=== PATIENT | male | born 1955 | race Caucasian/White ===

== ENCOUNTER 2017-10-13 12:17 | Outpatient (CLI) | payer MEDICARE, OTHER ==
[2017-10-13 14:16] LABS: #Basophils 0.1 thou/uL (0.0-0.2); #Eosinphils 0.2 thou/uL (0.0-0.7); #Lymphocytes 1.7 thou/uL (1.20-3.40); #Monocytes 0.6 thou/uL (0.11-0.59); #Neutrophils 3.8 thou/uL (1.40-6.50); %Basophils 0.8 % (0.0-1.0); %Eosinophils 3.3 % (0.0-10.0); %Lymphocytes 26.9 % (21.0-51.0); %Monocytes 8.8 % (0.0-10.0); Hematocrit 53.2 % (42.0-52.0); Mean Platelet Volume 8.6 fL (7.4-10.4); Red Blood Cell (RBC) Count 5.34 mill/uL (4.70-6.10); White Blood Cell (WBC) Count 6.3 thou/uL (4.8-10.8)
--- NOTE | 2017-10-13 14:16 | RAD ---
CHEST PA AND LATERAL: History: 62-year-old male for pre-operative evaluation. FINDINGS: Heart size is within normal limits. The lungs are clear. IMPRESSION: No acute intrathoracic disease. POS: [facility]
[2017-10-13 14:19] LABS: Bilirubin Negative (Negative); Blood, Urine Negative (Negative); Glucose, Urine (Dipstick) Negative (Negative); Ketone, Urine Negative (Negative); Nitrite Negative (Negative); Protein, Urine (Dipstick) Negative (Neg-Trace); Urobilinogen 0.2 mg/dL (0.2-1.0)
[2017-10-13 14:23] LABS: PTT 27.6 SEC (22.9-36.1); Prothrombin Time 14.5 SEC (12.0-14.7)
[2017-10-13 14:24] LABS: Bacteria/HPF None Seen HPF (None Seen); Hyaline Casts/LPF 0-3 HYALINE CAST LPF (0-3 Hyaline); RBC/HPF 0-3 HPF (0-3); Squamous Epithelial None Seen HPF (0-3); WBC/HPF 0-3 HPF (0-3)
[2017-10-13 14:40] LABS: Anion Gap 9 mmol/L (10-20); BUN (Urea Nitrogen) 12 mg/dL (8.4-25.7); Calc. Creatinine Clearance 0 mL/min (70-130); Carbon Dioxide 28 mmol/L (23-31); Chloride 104 mmol/L (98-107); Estimated GFR-MDRD Greater than 90
--- NOTE | 2017-10-14 07:49 | EKG ---
Test Reason : Blood Pressure : / mmHG Vent. Rate : 093 BPM Atrial Rate : 086 BPM P-R Int : 000 ms QRS Dur : 070 ms QT Int : 330 ms P-R-T Axes : 000 -17 047 degrees QTc Int : 410 ms Atrial fibrillation Inferior infarct , age undetermined Abnormal ECG No previous ECGs available Confirmed by LORNE PRIETO ([id number]) on 10/14/2017 7:49:18 AM Referred By: ELOISA Confirmed By:LORNE PRIETO
== END 2017-10-13 12:18 | disposition home or self-care (01) ==
LOC: LABBT 12:17
PROVIDERS: ATTEND Orthopaedic Surgery
DX: Z01.818 Encounter for other preprocedural examination (principal); M17.12 Unilateral primary osteoarthritis, left knee
CPT/HCPCS: 71020; 80048; 81001; 85025; 85610; 85730; 86850; 86900; 86901; 87081; 93005; 93010

== ENCOUNTER 2017-10-13 12:30 | Inpatient (IN) | payer MEDICARE, OTHER ==
[2017-10-13 12:39] VITALS: BMI 35.9
[2017-10-20] MEDS ORDERED: Cyclobenzaprine 10 MG TAB PO PRN (06:52)
[2017-10-20] MEDS ORDERED: Ipratropium Bromide 0.06% Nasal Inhaler 15ml EA NARE PRN (06:52)
[2017-10-20] MEDS ORDERED: Zolpidem Tartrate 5 MG TAB PO PRN ×2 (06:54→08:15)
[2017-10-20] MEDS ORDERED: Fentanyl 100 MCG/2 ML VIAL SLOW IVP PRN ×2 (06:54)
[2017-10-20] MEDS ORDERED: diphenhydrAMINE 25 MG CAP PO PRN ×2 (06:54→08:15)
[2017-10-20] MEDS ORDERED: traMADol HCl 50 MG TAB PO PRN ×3 (06:54→08:15)
[2017-10-20] MEDS ORDERED: Ondansetron HCl/PF 4 MG/2 ML Vial IVP PRN ×3 (06:54→10:56)
[2017-10-20] MEDS ORDERED: Promethazine HCl 25 MG/ML VIAL IM PRN ×3 (06:54→10:56)
[2017-10-20] MEDS ORDERED: HYDROcodone/Acetaminophen 10/325 mg Tablet PO PRN ×2 (06:54)
[2017-10-20] MEDS ORDERED: Acetaminophen 325 MG TAB PO PRN (06:54)
[2017-10-20] MEDS ORDERED: Tranexamic Acid 1,000 MG in Sodium Chloride 0.9% 100 ML IVPB SCH (07:00)
[2017-10-20] MEDS ORDERED: Tranexamic Acid 1,000 MG/100 ML BAG ONE ×2 (07:08→11:43)
[2017-10-20] MEDS ORDERED: Vancomycin HCl 1.5 GM in Sodium Chloride 0.9% 250 ML 300 ML IVPB SCH (07:15)
[2017-10-20] MEDS ORDERED: Fentanyl 100 MCG/2 ML VIAL ONE ×3 (07:39→11:36)
[2017-10-20] MEDS ORDERED: Midazolam HCl 2 mg/2 ml Vial ONE (07:39)
[2017-10-20] MEDS ORDERED: diphenhydrAMINE 50 MG/ML VIAL IVP PRN (08:15)
[2017-10-20] MEDS ORDERED: Promethazine HCl 25 MG SUPP PR PRN (08:15)
[2017-10-20] MEDS ORDERED: Naloxone HCl 0.4 mg/ml Vial IV PRN (08:15)
[2017-10-20] MEDS ORDERED: HYDROcodone/Acetaminophen 5/325 mg Tablet PO PRN ×2 (08:15)
[2017-10-20] MEDS ORDERED: Eucerin (Mineral Oil/Petrolatum,White) 30 gm Jar TOP PRN (08:15)
[2017-10-20] MEDS ORDERED: Naloxone HCl 0.4 mg/ml Vial IVP PRN (08:15)
[2017-10-20] MEDS ORDERED: Bupivacaine 0.25% 10 ML VIAL EPIDURAL PRN (08:15)
[2017-10-20] MEDS ORDERED: diphenhydrAMINE 50 MG/ML VIAL IM PRN (08:15)
[2017-10-20] MEDS ORDERED: Fentanyl/Bupivacaine 250 ML in Premix Bag 1 BAG EPIDURAL SCH (08:15)
[2017-10-20] MEDS ORDERED: Bupivacaine 0.25% HCL 30 ML VIAL ONE (09:00)
[2017-10-20] MEDS ORDERED: tiZANidine HCl 4 MG TAB PO PRN (09:00)
[2017-10-20] MEDS ORDERED: Promethazine HCl 25 MG/ML VIAL SLOW IVP PRN (10:56)
--- NOTE | 2017-10-20 11:24 | OP ---
PREOPERATIVE DIAGNOSIS: Degenerative joint disease, right hip. POSTOPERATIVE DIAGNOSIS: Degenerative joint disease, right hip. SURGEON: Maury Green M.D. CEMENT TRUCK LOADER: Robbie Miles PA-C. BLOOD LOSS: 250 mL SPECIMEN: None. DRAINS: None. COMPLICATIONS: None. IMPLANTS USED: [place] Accolade #3 stem, standard ceramic 36 mm head, a 54 mm Tritanium cup. PROCEDURE IN DETAIL: After informed consent was obtained in the preoperative holding area, the patie nt was taken to the operative suite where general anesthesia was induced. The patient was then posit ioned in the lateral decubitus position. The hip was then prepped and draped in usual sterile fashio n. The patient received preoperative antibiotics. Prior to incision, time-out was called and all me mbers of the surgical team agreed upon site, surgeon, and patient. After this, a longitudinal incisi on was made directly over the trochanter, noted by palpation extending 2 fingerbreadths above and bel ow the trochanter. The deeper subcutaneous layer was undermined with Bovie electrocautery. The ilio tibial band was encountered and incised sharply and the plane below this was developed bluntly. [facility] ret[facility] was placed to hold this opened. The lateral aspect of the trochanter and the abduct or muscles were encountered and then reflected anteriorly off the trochanter using Bovie electrocaute ry. Once this was completed, the anterior capsule was then encountered and identified and copious ca psulotomy was carried out, exposing the femoral neck and head. Dislocation maneuver was then performe d and an in situ provisional neck cut was then made using the oscillating saw. Attention was then tu rned to acetabular preparation and sequential reaming was carried out up to the appropriate diameter and a trial was then malleted into place with good firm resistance and no pullout. The permanent nicol tabular shell was then malleted squarely into place, as was the appropriate liner. Once completed, t he wound was copiously irrigated and attention was then turned to femoral preparation. Flexion and ex ternal rotation was performed of the exposed thigh and femoral elevators were then placed at the prox imal aspect of the wound. Canal finder was used to establish the length of the canal and sequential reaming was carried out, followed by broaching. Once the appropriate stability was established with the trial broaches with both flexion, extension and rotational stability, we did trial with neutral a nd 2 mm offset incremental necks. Once the appropriate size was decided upon, with good stability no crystal with flexion, extension, internal and external rotation and shuck being negative, we removed the femoral trial broach and malletted into place the permanent prosthesis with good firm fit, which was also stable to rotation. Again, the hip felt very stable to flexion, extension, internal and externa l rotation. Leg lengths appeared near anatomic clinically and we were quite happy with prosthesis pl acement. Copious irrigation was then carried out through the entirety of the wound. Primary closure of the abductors was accomplished with interrupted #2 Vicryl [id number] stitches and the IT ban d was then closed with interrupted #2 Vicryl, oversewn with a #2 running barbed Quill stitch. Subcut aneous fascia was closed with running barbed Quill stitch and a subcuticular Monocryl barbed Quill st itch was used for skin closure and augmented with skin cement. A sterile dressing was applied. The p rocedure was terminated without any complication. All counts were correct. The patient was awakened in the operative suite and taken to the recovery room in stable condition.
[2017-10-20] MEDS ORDERED: Ropivacaine 0.5% HCl/PF (150 MG/30 ML VIAL) ONE (11:29)
[2017-10-20] MEDS: Aspirin 325 MG TAB PO SCH ×2 (13:00→21:20)
[2017-10-20] MEDS: Sodium Chloride 0.9% 1,000 ML IV SCH ×3 (13:00→21:22)
[2017-10-20] MEDS: Ferrous Gluconate 324 MG TAB PO SCH ×2 (13:00→21:20)
--- NOTE | 2017-10-20 13:00 | RAD ---
RIGHT HIP TWO VIEWS: History: Post op follow up. FINDINGS/IMPRESSION: Right hip prosthesis is noted in place. Its component appear in adequate position and alignment. No a cute process. Evidence of post-operative change in the surrounding soft tissues. POS: [facility]
[2017-10-20] MEDS: Ketorolac Tromethamine 30 MG/ML VIAL IVP SCH ×3 (13:01→23:41)
[2017-10-20] MEDS: Gabapentin 300 MG CAP PO SCH ×3 (13:01→21:20)
[2017-10-20] MEDS: Multivitamin W/ Minerals 1 TAB PO SCH (13:01)
[2017-10-20] MEDS: Senokot S 8.6-50 MG TAB PO SCH ×2 (13:01→21:20)
[2017-10-20] MEDS ORDERED: Ketorolac Tromethamine 30 MG/ML VIAL IVP SCH (14:00)
[2017-10-20] MEDS ORDERED: Ondansetron HCl/PF 4 MG/2 ML Vial ONE (16:03)
[2017-10-20] MEDS ORDERED: ePHEDrine/0.9% NaCl/PF SYRINGE 50 mg/10 ml ONE (16:03)
[2017-10-20] MEDS ORDERED: PHENYLEPHRINE-NS 100 MCG/ML 10 ML SYRINGE ONE (16:03)
[2017-10-20] MEDS ORDERED: Glycopyrrolate 0.2 MG/ML 5 ML SYRINGE ONE (16:03)
[2017-10-20] MEDS ORDERED: Propofol 200 MG/20 ML VIAL ONE (16:03)
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
[2017-10-20] MEDS: CEFAZOLIN/Water 2 GM/20 ML SYRINGE SLOW IVP SCH ×2 (16:55→23:42)
[2017-10-20] MEDS ORDERED: Non-Formulary Item 1 EACH (Losartan Potassium [Losartan Potassium] 1 TAB) PO SCH (21:00)
[2017-10-20] MEDS: Losartan Potassium 25 MG TAB PO SCH (21:20)
[2017-10-20] MEDS: Loratadine 10 MG TAB PO SCH (21:20)
[2017-10-20] MEDS: Fluticasone Propionate Nasal Spray 16 gm Bottle NASAL SCH (21:28)
[2017-10-21 05:43] LABS: Hematocrit 47.4 % (42.0-52.0); Mean Platelet Volume 8.8 fL (7.4-10.4); Red Blood Cell (RBC) Count 4.73 mill/uL (4.70-6.10); White Blood Cell (WBC) Count 7.1 thou/uL (4.8-10.8)
[2017-10-21] MEDS: Levothyroxine Sodium 75 MCG TAB PO SCH (06:06)
[2017-10-21] MEDS: Ketorolac Tromethamine 30 MG/ML VIAL IVP SCH ×4 (06:06→23:41)
[2017-10-21] MEDS: Multivitamin W/ Minerals 1 TAB PO SCH (09:32)
[2017-10-21] MEDS: Gabapentin 300 MG CAP PO SCH ×3 (09:32→20:45)
[2017-10-21] MEDS: Aspirin 325 MG TAB PO SCH ×2 (09:32→20:45)
[2017-10-21] MEDS: Senokot S 8.6-50 MG TAB PO SCH ×2 (09:33→20:46)
[2017-10-21] MEDS: Ferrous Gluconate 324 MG TAB PO SCH ×2 (09:33→20:45)
[2017-10-21] MEDS ORDERED: Fentanyl/Bupivacaine 250 ML in Premix Bag 1 BAG EPIDURAL SCH (10:00)
--- NOTE | 2017-10-21 14:23 | PDOC.PN ---
- Subjective Encounter Start Date: 10/21/17 Encounter Start Time: 14:21 Subjective: no fever, chest pain, etc - Objective MAR Reviewed: Yes Vital Signs & Weight: Vital Signs (12 hours) Temp Pulse Resp BP Pulse Ox 10/21/17 08:00 99.2 F 117 H 20 115/75 93 L 10/21/17 04:26 98.9 F 92 18 94/61 93 L Weight Admit Weight 250 lb Weight 250 lb I&O: 10/20/17 10/21/17 10/22/17 06:59 06:59 06:59 Intake Total 1200 Output Total 700 Balance 500 Result Diagrams: 10/21/17 04:48 Phys Exam - Physical Examination Constitutional: NAD Neck: no JVD Respiratory: clear to auscultation bilateral Cardiovascular: no significant murmur, irregular Gastrointestinal: soft, non-tender, positive bowel sounds Musculoskeletal: no edema Dx/Plan (1) Atrial fibrillation with controlled ventricular response Code(s): I48.91 - UNSPECIFIED ATRIAL FIBRILLATION Status: Chronic (2) HTN (hypertension) Code(s): I10 - ESSENTIAL (PRIMARY) HYPERTENSION Status: Chronic Qualifiers: Hypertension type: essential hypertension Qualified Code(s): I10 - Essential (primary) hypertension (3) Hypothyroidism Code(s): E03.9 - HYPOTHYROIDISM, UNSPECIFIED Status: Chronic Qualifiers: Hypothyroidism type: unspecified Qualified Code(s): E03.9 - Hypothyroidism , unspecified (4) Anxiety Code(s): F41.9 - ANXIETY DISORDER, UNSPECIFIED Status: Chronic - Plan doing well -: cont toprol , etc -: will follow * .
[2017-10-21] MEDS: Sodium Chloride 0.9% 1,000 ML IV SCH ×2 (15:57→22:48)
[2017-10-21] MEDS: Fluticasone Propionate Nasal Spray 16 gm Bottle NASAL SCH (20:44)
[2017-10-21] MEDS: Losartan Potassium 25 MG TAB PO SCH (20:45)
[2017-10-21] MEDS: Loratadine 10 MG TAB PO SCH (20:46)
[2017-10-21] MEDS ORDERED: Testosterone 1% 5 GM PK TOP SCH (21:00)
[2017-10-22 05:50] LABS: Hematocrit 46.1 % (42.0-52.0); Mean Platelet Volume 8.5 fL (7.4-10.4); Red Blood Cell (RBC) Count 4.62 mill/uL (4.70-6.10); White Blood Cell (WBC) Count 7.3 thou/uL (4.8-10.8)
[2017-10-22] MEDS: Levothyroxine Sodium 75 MCG TAB PO SCH (05:54)
[2017-10-22] MEDS: Ketorolac Tromethamine 30 MG/ML VIAL IVP SCH (05:55)
[2017-10-22] MEDS: Aspirin 325 MG TAB PO SCH (08:14)
[2017-10-22] MEDS: Multivitamin W/ Minerals 1 TAB PO SCH (08:15)
[2017-10-22] MEDS: Ferrous Gluconate 324 MG TAB PO SCH (08:15)
[2017-10-22] MEDS: Senokot S 8.6-50 MG TAB PO SCH (08:15)
[2017-10-22] MEDS: Gabapentin 300 MG CAP PO SCH ×2 (08:15→16:20)
[2017-10-22 08:59] VITALS: BP 107/68; TEMP 98.6
[2017-10-22] MEDS: Sodium Chloride 0.9% 1,000 ML IV SCH (09:02)
--- NOTE | 2017-10-22 15:15 | PDOC.PN ---
- Subjective Encounter Start Date: 10/22/17 Encounter Start Time: 15:13 Subjective: up and about - Objective MAR Reviewed: Yes Vital Signs & Weight: Vital Signs (12 hours) Temp Pulse Resp BP Pulse Ox 10/22/17 08:00 98.6 F 86 18 94 L 10/22/17 07:45 98.6 F 86 18 107/68 94 L 10/22/17 04:34 98.0 F 94 19 106/73 91 L Weight Admit Weight 250 lb Weight 250 lb I&O: 10/21/17 10/22/17 10/23/17 06:59 06:59 06:59 Intake Total 1200 1996 Output Total 700 1400 Balance 500 596 Result Diagrams: 10/22/17 05:19 Phys Exam - Physical Examination Neck: no JVD Respiratory: clear to auscultation bilateral Cardiovascular: RRR, no significant murmur Gastrointestinal: soft, non-tender Musculoskeletal: no edema Dx/Plan (1) Atrial fibrillation with controlled ventricular response Code(s): I48.91 - UNSPECIFIED ATRIAL FIBRILLATION Status: Chronic (2) HTN (hypertension) Code(s): I10 - ESSENTIAL (PRIMARY) HYPERTENSION Status: Chronic Qualifiers: Hypertension type: essential hypertension Qualified Code(s): I10 - Essential (primary) hypertension (3) Hypothyroidism Code(s): E03.9 - HYPOTHYROIDISM, UNSPECIFIED Status: Chronic Qualifiers: Hypothyroidism type: unspecified Qualified Code(s): E03.9 - Hypothyroidism , unspecified (4) Anxiety Code(s): F41.9 - ANXIETY DISORDER, UNSPECIFIED Status: Chronic - Plan cont current plan of care being discharged by ortho today. cont routine home meds * .
--- NOTE | 2017-10-22 16:11 | DIS ---
TRANSFER OF CARE NOTE PRIMARY CARE PROVIDER: Bib Shaffer M.D. CONSULTING PHYSICIAN: Maury Green M.D. DISCHARGE DISPOSITION: Discharged home. DATE OF ADMISSION: 10/20/2017 DATE OF DISCHARGE: 10/22/2017 FINAL DIAGNOSES: Right hip arthroplasty, atrial fibrillation with controlled ventricular response, h ypertension, hypothyroidism and anxiety disorder. DISCHARGE MEDICATIONS: Metoprolol 25 one a day, testosterone gel 5 grams daily on skin, Atrovent alphonso al spray p.r.n., Flonase allergy relief p.r.n., Cymbalta 60 mg a day, levothyroxine 75 mcg a day, los ute 25 mg a day, gabapentin 300 mg 3 times a day, hydrocodone 5/325 one or two tablets every 4 hour s for pain, aspirin 81 mg a day. ALLERGIES: None. CODE STATUS: FULL. PENDING AT THE TIME OF DISCHARGE: Nothing. HOSPITAL COURSE: The patient with a severe limitations of activity from right hip degenerative arthr itis placed in the hospital on 10/20/2017, he underwent right hip arthroplasty. [facility] Arlene Xiong. His hospital course postop was uneventful. He tolerated physical therapy etc., well. He is being discharged home. FOLLOWUP: Will be with Dr. Green and Dr. Shaffer p.r.n.
== END 2017-10-22 15:40 | disposition home or self-care (01) | DRG 470 ==
LOC: SURG A 10-20 06:23 → SJJU 10-20 14:08
PROVIDERS: ADMIT Orthopaedic Surgery; ATTEND Orthopaedic Surgery
PROC: 0SR904A Replacement of Right Hip Joint with Ceramic on Polyethylene Synthetic Substitute, Uncemented, Open Approach (ICD-10-PCS; principal; 2017-10-20)
DX: M16.11 Unilateral primary osteoarthritis, right hip (principal); I10 Essential (primary) hypertension; I48.2 Chronic atrial fibrillation; E03.9 Hypothyroidism, unspecified; G89.29 Other chronic pain; M54.9 Dorsalgia, unspecified; F41.9 Anxiety disorder, unspecified; F32.9 Major depressive disorder, single episode, unspecified; Z79.82 Long term (current) use of aspirin; Z79.890 Hormone replacement therapy
CPT/HCPCS: 36415; 85027; G8978-GP-CL; G8979-GP-CJ; G8987-GO-CJ; G8988-GO-CI; J1885; J2250; J2405; J2704; J2795; J3010; J3370; J7050; S0020

== ENCOUNTER 2017-11-16 16:23 | Outpatient (CLI) | payer MEDICARE, OTHER ==
[2017-11-16 17:18] LABS: Hemoglobin 16.7 g/dL (14.0-18.0); Mean Corpuscular HGB CONC 32.7 g/dL (32.0-36.0); Mean Corpuscular Hemoglobin 32.5 pg (27.0-31.0); Mean Corpuscular Volume 99.3 fl (80.0-94.0); Mean Platelet Volume 8.5 fL (7.4-10.4); Platelet Count 240 thou/uL (130-400); RBC Distribution Width 13.3 % (11.5-14.5); Red Blood Cell (RBC) Count 5.16 mill/uL (4.70-6.10); White Blood Cell (WBC) Count 6.1 thou/uL (4.8-10.8)
[2017-11-16 17:23] LABS: INR-International Normal Ratio 1.1; Prothrombin Time 14.2 SEC (12.0-14.7)
[2017-11-16 17:57] LABS: Anion Gap 15 mmol/L (10-20); BUN (Urea Nitrogen) 18 mg/dL (8.4-25.7); Calc. Creatinine Clearance 0 mL/min (70-130); Calcium 10.1 mg/dL (7.8-10.44); Carbon Dioxide 28 mmol/L (23-31); Chloride 101 mmol/L (98-107); Estimated GFR-MDRD 83; Glucose 82 mg/dL (80-115); Sodium 139 mmol/L (136-145)
--- NOTE | 2017-12-11 16:32 | EKG ---
Test Reason : Blood Pressure : / mmHG Vent. Rate : 103 BPM Atrial Rate : 141 BPM P-R Int : 000 ms QRS Dur : 072 ms QT Int : 338 ms P-R-T Axes : 000 -43 059 degrees QTc Int : 442 ms Atrial fibrillation with rapid ventricular response Left axis deviation Abnormal ECG When compared with ECG of 13-OCT-2017 13:18, No significant change was found Confirmed by DR. Latricia HAND ([id number]) on 12/11/2017 4:31:45 PM Referred By: TIFFANIE Confirmed By:DR. Latricia HAND
== END 2017-11-16 16:24 | disposition home or self-care (01) ==
LOC: LABBT 16:23
PROVIDERS: ATTEND Internal Medicine Cardiovascular Disease
DX: Z01.818 Encounter for other preprocedural examination (principal); I48.91 Unspecified atrial fibrillation
CPT/HCPCS: 80048; 85027; 85610; 93005; 93010

== ENCOUNTER 2017-11-19 07:02 | Day surgery (SDC) | payer MEDICARE, OTHER ==
[2017-11-16 16:58] VITALS: BMI 35.6
[2017-11-19] MEDS ORDERED: Diprivan 20 ML ONE (09:11)
--- NOTE | 2017-11-19 11:26 | OP ---
DATE OF PROCEDURE: 11/19/2017 PREPROCEDURE DIAGNOSIS: Atrial fibrillation, symptomatic. POSTPROCEDURE DIAGNOSIS: Successful cardioversion. PROCEDURES PERFORMED: Direct current cardioversion. SUMMARY: Mr. Cash is a pleasant 62-year-old white gentleman, who comes to the hospital for a plan jaclyn MONTEZ cardioversion. Please see MONTEZ for further details, but after MONTEZ, cleared him from a blood c lot. We gave him 1 single synchronized shock at 100 joules, which was not successful; a second synch ronized shock was given at 200 joules, which was unsuccessful; and a third shock was delivered at 300 joules after repositioning the pads in a synchronized fashion successfully converting him into sinus rhythm. Patient tolerated the procedure well and Anesthesia Department provided with sedation for t he patient. RECOMMENDATIONS: 1. Continue Multaq. 2. Continue Eliquis at current dose. 3. Follow up in the office in 1 month. 4. Will be discharged home later today.
--- NOTE | 2017-11-19 11:46 | ECHO ---
TRANSESOPHAGEAL ECHOCARDIOGRAM: DATE OF SERVICE: 11/19/17 REASON FOR STUDY: Evaluation of atrial thrombus in the setting of atrial fibrillation, preparing for cardioversion. DETAILS: The anesthesiology department provided sedation for the patient. Please see their notes for details. After adequate sedation was achieved, the transesophageal probe was inserted into the mouth into the esophagus without problems. Multiplanar views were then obtained. FINDINGS: Left ventricle is normal size with normal wall thickness. Systolic function is normal, EF estimated a t 55-60%. No regional wall motion abnormalities. Left atrium is mildly dilated. Left atrial appendage is small with normal velocities. No evidence of left atrial appendage thrombus or masses. Right ventricle is dilated with normal RV systolic function. Right atrium is mildly dilated with no evidence of mass or thrombus. Interatrial septum appears to be intact by color Doppler. Aortic valve is sclerotic, but opens well. Three cusps. No stenosis or regurgitation. Mitral valve is structurally normal. Mild mitral annular calcification with mild MR. Tricuspid valve is structurally normal. There is mild TR. Pulmonary valve is structurally normal. No significant stenosis or regurgitation. Descending thoracic aorta is normal caliber with just intimal thickening. No significant atherosclero sis. CONCLUSIONS: 1. Normal systolic function, EF of 55-60%. 2. Dilated right ventricle and right atrium. 3. Mild MR. 4. Mild TR. 5. Aortic valve sclerosis. 6. No evidence of mass or thrombus in the left atrium, right atrium, or left atrial appendage.
[2017-11-19] MEDS ORDERED: Propofol 200 MG/20 ML VIAL ONE (16:51)
== END 2017-11-19 10:27 | disposition home or self-care (01) ==
LOC: CCL 07:02
PROVIDERS: ATTEND Internal Medicine Cardiovascular Disease
DX: I48.91 Unspecified atrial fibrillation (principal); I35.0 Nonrheumatic aortic (valve) stenosis; I34.0 Nonrheumatic mitral (valve) insufficiency; I07.1 Rheumatic tricuspid insufficiency; F41.8 Other specified anxiety disorders; E07.9 Disorder of thyroid, unspecified; Z79.01 Long term (current) use of anticoagulants; Z79.51 Long term (current) use of inhaled steroids; Z79.82 Long term (current) use of aspirin; Z79.899 Other long term (current) drug therapy; Z91.040 Latex allergy status; Z88.8 Allergy status to other drugs, medicaments and biological substances; Z96.649 Presence of unspecified artificial hip joint; Z98.890 Other specified postprocedural states
CPT/HCPCS: 92960; 93005; 93010; 93312; J2704

== ENCOUNTER 2018-03-22 14:10 | Outpatient (CLI) | payer MEDICARE, OTHER ==
--- NOTE | 2018-03-22 16:11 | ULT ---
LIMITED SONOGRAM OF THE RIGHT FOREARM SUBCUTANEOUS SOFT TISSUES: 03/22/2018 HISTORY: Right forearm hematoma. The patient reports with a large palpable abnormality of the right forearm, after a fall two weeks ago. FINDINGS: There is an anechoic collection seen within the subcutaneous soft tissues, at the level of right mid forearm, at the site of the palpable abnormality. This collection measures approximately 8.6 cm x 2. 2 cm x 5.5 cm. Color-flow evaluation of this structure demonstrates no flow. Internal echogenicity is present but there is an anechoic area with a linear area of increased echogenicity, which may repr esent septation. IMPRESSION: Large fluid collection in the region of the patient's palpable abnormality, right forearm subcutaneou s soft tissues. Findings may represent a hematoma. Infection cannot be entirely excluded. POS: [facility]
== END 2018-03-22 14:11 | disposition home or self-care (01) ==
LOC: SCSULT 14:10
PROVIDERS: ATTEND Family Medicine
DX: T14.8XXA Other injury of unspecified body region, initial encounter (principal)
CPT/HCPCS: 76999

== ENCOUNTER 2018-03-23 15:00 | Outpatient (CLI) | payer MEDICARE, OTHER ==
[2018-03-23 15:57] LABS: #Eosinphils 0.3 thou/uL (0.0-0.7); #Lymphocytes 1.7 thou/uL (1.20-3.40); #Monocytes 0.6 thou/uL (0.11-0.59); #Neutrophils 4.2 thou/uL (1.40-6.50); %Basophils 0.4 % (0.0-1.0); %Eosinophils 3.8 % (0.0-10.0); %Lymphocytes 25.2 % (21.0-51.0); %Monocytes 9.4 % (0.0-10.0); %Neutrophils 61.3 % (42.0-75.0); Hemoglobin 15.7 g/dL (14.0-18.0); Mean Corpuscular HGB CONC 33.5 g/dL (32.0-36.0); Mean Corpuscular Hemoglobin 32.6 pg (27.0-31.0); Mean Corpuscular Volume 97.1 fl (80.0-94.0); Mean Platelet Volume 7.8 fL (7.4-10.4); Platelet Count 260 thou/uL (130-400); RBC Distribution Width 13.3 % (11.5-14.5); Red Blood Cell (RBC) Count 4.83 mill/uL (4.70-6.10); White Blood Cell (WBC) Count 6.8 thou/uL (4.8-10.8)
[2018-03-23 16:16] LABS: Anion Gap 11 mmol/L (10-20); BUN (Urea Nitrogen) 15 mg/dL (8.4-25.7); Calc. Creatinine Clearance 0 mL/min (70-130); Calcium 9.4 mg/dL (7.8-10.44); Carbon Dioxide 25 mmol/L (23-31); Chloride 106 mmol/L (98-107); Estimated GFR-MDRD Greater than 90; Glucose 84 mg/dL (80-115); Potassium 4.4 mmol/L (3.5-5.1); Sodium 138 mmol/L (136-145)
--- NOTE | 2018-03-24 20:25 | EKG ---
Test Reason : Blood Pressure : / mmHG Vent. Rate : 063 BPM Atrial Rate : 063 BPM P-R Int : 176 ms QRS Dur : 074 ms QT Int : 416 ms P-R-T Axes : 045 -20 063 degrees QTc Int : 425 ms Normal sinus rhythm Inferior infarct (cited on or before 19-NOV-2017) Cannot rule out Anterior infarct , age undetermined Abnormal ECG When compared with ECG of 19-NOV-2017 09:47, No significant change was found Confirmed by FRANKY HUDDLESTON ([id number]) on 03/24/2018 8:25:13 PM Referred By: XAVIER Confirmed By:FRANKY HUDDLESTON
== END 2018-03-23 15:01 | disposition home or self-care (01) ==
LOC: LABBT 15:00
PROVIDERS: ATTEND Specialist
DX: Z01.818 Encounter for other preprocedural examination (principal); Z79.01 Long term (current) use of anticoagulants
CPT/HCPCS: 80048; 85025; 93005; 93010

== ENCOUNTER 2018-03-24 06:57 | Day surgery (SDC) | payer MEDICARE, OTHER ==
[2018-03-23 15:14] VITALS: BMI 34.4
[2018-03-24] MEDS ORDERED: CEFAZOLIN/Water 2 GM/20 ML SYRINGE ONE (08:26)
[2018-03-24] MEDS ORDERED: Lidocaine 2% 10 ML INJ ONE (08:47)
[2018-03-24] MEDS ORDERED: Bupivacaine HCl 0.5%/Epinephrine 1:200,000/PF 30 ml Vial ONE ×2 (08:47→09:31)
[2018-03-24] MEDS ORDERED: Fentanyl 100 MCG/2 ML VIAL ONE (09:11)
[2018-03-24] MEDS ORDERED: Bupivacaine/Epinephrine 0.25% 30 ML VIAL ONE (09:31)
[2018-03-24] MEDS ORDERED: Morphine 4 MG/ML VIAL ONE (10:48)
--- NOTE | 2018-03-24 11:29 | OP ---
DATE OF PROCEDURE: 03/24/2018 PREOPERATIVE DIAGNOSIS: Hematoma, right arm. POSTOPERATIVE DIAGNOSIS: Hematoma, right arm. PROCEDURE: Evacuation of hematoma right arm, 6 cm incision, layered closure, #10 LINDA drain. SURGEON: Dr. Deshpande. ANESTHESIA: General. Local 0.5% Marcaine with epinephrine, 30 mL, mixed with 2% Xylocaine, 10 mL. PROCEDURE IN DETAIL: Patient is taken to the operating room where under general anesthesia, right up per extremity was prepared with ChloraPrep and draped in routine fashion. Incision was made longitud inally in the lateral right forearm just below the elbow carried down to skin and subcutaneous tissue evacuating large hematoma, irrigating the wound and noting good hemostasis obtained with the cautery . A #10 LINDA drain placed in the wound, secured with 3-0 nylon suture. Dermabond and Op-Site applied. Subcutaneous tissues approximated with 3-0 Monocryl, skin with subdermal 4-0 Monocryl and DermaGlue applied. Local anesthetic infiltrated into the skin and subcutaneous tissue and Augustine wrap applied. Patient tolerated the procedure well.
[2018-03-24] MEDS ORDERED: Ketorolac Tromethamine 30 MG/ML VIAL ONE (15:10)
[2018-03-24] MEDS ORDERED: Dexamethasone 20 MG/5 ML VIAL ONE (15:10)
[2018-03-24] MEDS ORDERED: PROPOFOL 200 MG/20 ML VIAL ONE (15:10)
== END 2018-03-24 11:30 | disposition home or self-care (01) ==
LOC: SDC 06:57
PROVIDERS: ATTEND Specialist
PROC: 0X9 Anatomical Regions, Upper Extremities, Drainage (ICD-10-PCS; principal; 2018-03-24)
DX: S40.021A Contusion of right upper arm, initial encounter (principal); I10 Essential (primary) hypertension; E03.9 Hypothyroidism, unspecified; G47.33 Obstructive sleep apnea (adult) (pediatric); G89.29 Other chronic pain; M54.9 Dorsalgia, unspecified; F41.9 Anxiety disorder, unspecified; L71.9 Rosacea, unspecified; Z79.01 Long term (current) use of anticoagulants; Z79.51 Long term (current) use of inhaled steroids; Z79.2 Long term (current) use of antibiotics; Z79.82 Long term (current) use of aspirin; Z79.899 Other long term (current) drug therapy; Z88.8 Allergy status to other drugs, medicaments and biological substances; Z91.048 Other nonmedicinal substance allergy status; Z99.89 Dependence on other enabling machines and devices
CPT/HCPCS: 96374; J0670; J1100; J1885; J2270; J2704; J3010

== ENCOUNTER 2018-04-20 12:34 | Outpatient (CLI) | payer MEDICARE, OTHER ==
--- NOTE | 2018-04-20 14:37 | MRI ---
CERVICAL SPINE MRI WITHOUT CONTRAST: Date: 04-20-18 Comparison: None. History: Cervical radiculopathy. Right arm weakness for two months. Technique: Multiplanar, multisequence MR imaging of the cervical spine provided without contrast. FINDINGS: The sagittal STIR imaging demonstrates no focal area of osseous marrow edema. There is mild degenerative change noted at the atlantoaxial interspace. There is no anterolisthesis or retrolisthesis noted within the cervical spine. C2-3: There is disc space narrowing with disc desiccation and minimal disc bulge causing no significa nt central canal stenosis. There is mild bilateral facet and uncal vertebral osteophyte formation with no significant neural for aminal stenosis. C3-4: There is disc space narrowing, disc desiccation and disc bulge which partially effaces the vent ral thecal sac and causes a mild degree of central canal stenosis. There is significant bilateral fac et and uncal vertebral osteophyte formation, right greater than left, with moderate bilateral neural foraminal stenosis, right greater than left. C4-5: There is disc space narrowing and disc desiccation and disc bulge which partially effaces the v entral thecal sac and causes a mild degree of central canal stenosis. There is bilateral facet and un domitila vertebral osteophyte formation, right greater than left, with moderate/severe bilateral neural fo raminal stenosis, right greater than left. C5-6: Disc space narrowing, disc desiccation and disc bulge present with partial effacement of the ve ntral thecal sac and mild central canal stenosis. Bilateral facet and uncal vertebral osteophyte form ation noted, right greater than left, with mild to moderate right neural foraminal stenosis. No signi ficant left neural foraminal stenosis. C6-7: There is disc space narrowing and disc desiccation with mild disc bulge causing no significant central canal stenosis. Bilateral facet and uncal vertebral osteophyte formation noted, right greater than left, with mild left and moderate to severe right neural foraminal stenosis. C7-T1: There is disc desiccation and disc space narrowing. There is bilateral facet hypertrophy. No s ignificant central canal or neural foraminal stenosis. No focal area of abnormal signal intensity is identified within the cervical cord. IMPRESSION: 1. Multilevel degenerative changes within the cervical spine as described above. POS: [facility]
== END 2018-04-20 12:35 | disposition home or self-care (01) ==
LOC: SCSMRI 12:34
PROVIDERS: ATTEND Family Medicine
DX: M47.22 Other spondylosis with radiculopathy, cervical region (principal); R29.898 Other symptoms and signs involving the musculoskeletal system
CPT/HCPCS: 72141

== ENCOUNTER 2018-06-10 12:24 | Outpatient (CLI) | payer MEDICARE, OTHER ==
--- NOTE | 2018-06-10 14:02 | CT ---
CT ABDOMEN AND PELVIS WITHOUT CONTRAST STONE PROTOCOL: Date: 06/10/18 HISTORY: Gross hematuria. Kidney stones. COMPARISON: None. FINDINGS: There is mild atelectasis in the lung bases. No pericardial effusion. There is a punctate calcification along the anterior aspect of the right ureter at the level of L3, w hich may be within the gonadal vein. No definite calculi are present in the right renal collecting sy stem. There is a 2.0 mm calculus at the left ureteropelvic junction with mild prominence of left des l pelvis and calices. There is also a 3.0 mm calculus intrapolar left kidney. A 1.0 mm calculus is al so present interpolar left kidney. Moderate atherosclerotic plaque of the aortoiliac system. There is some low grade retroperitoneal karissa ma on the left, extending from the left perirenal space. There is some scar along the right hip. Right SI joint fusion hardware is present. Posterior lumbosac ral spinal fusion hardware is present. There is chronic elevation right hemidiaphragm. Noncontrast evaluation of the liver, spleen, and gallbladder are all unremarkable. IMPRESSION: 1. 2.0 mm calculus left ureteropelvic junction causing mild dilatation of the left renal pelvis and dilatation of the ureters. 2. Small left-sided renal calculi as described above. 3. Right parapelvic cyst. 4. Mild inflammatory stranding along the left perirenal space extending along the left iliac vascula ture. POS: [facility]
== END 2018-06-10 12:25 | disposition home or self-care (01) ==
LOC: CT 12:24
PROVIDERS: ATTEND Family Medicine
DX: R31.0 Gross hematuria (principal); R10.9 Unspecified abdominal pain; N20.2 Calculus of kidney with calculus of ureter; N28.82 Megaloureter; N28.89 Other specified disorders of kidney and ureter; N28.1 Cyst of kidney, acquired; N05.9 Unspecified nephritic syndrome with unspecified morphologic changes; I77.6 Arteritis, unspecified
CPT/HCPCS: 36415; 74176; 80053; 81001; 82550; 85025; 87086

== ENCOUNTER 2018-07-20 09:31 | Outpatient (CLI) | payer MEDICARE, OTHER ==
--- NOTE | 2018-07-20 13:51 | MRI ---
MRI RIGHT SHOULDER: Date: 07/20/18 PROVIDED CLINICAL HISTORY: Right shoulder pain. FINDINGS: Evaluation is limited by patient motion. There is a full thickness, full width retracted tear of the supraspinatus tendon with retraction to a bout the level of the acromion. The components of the rotator cuff appear otherwise intact. The long head biceps tendon appears intact and normally located. The glenoid labrum and glenohumeral articular cartilage are suboptimally evaluated on the basis of th is examination. However, there is abnormal signal present in the region of the superior labrum suspic ious for SLAP tear. There is a small glenohumeral joint effusion. There is conspicuous subacromial/subdeltoid bursal flui d. Acromioclavicular joint osteoarthrosis is noted which produces mass effect upon the subjacent suprasp inatus. Rotator cuff muscular volume appears preserved. IMPRESSION: 1. Full thickness, full width retracted supraspinatus tendon tear. 2. Findings suspicious for SLAP tear. 3. Acromioclavicular joint osteoarthrosis. 4. Small glenohumeral joint effusion. POS: [facility]
== END 2018-07-20 09:32 | disposition home or self-care (01) ==
LOC: SCSMRI 09:31
PROVIDERS: ATTEND Orthopaedic Surgery
DX: M75.101 Unspecified rotator cuff tear or rupture of right shoulder, not specified as traumatic (principal); M19.011 Primary osteoarthritis, right shoulder; M25.411 Effusion, right shoulder

== ENCOUNTER 2018-08-05 09:51 | Outpatient (CLI) | payer MEDICARE, OTHER ==
[2018-08-05 11:20] LABS: #Basophils 0.1 thou/uL (0.0-0.2); #Eosinphils 0.2 thou/uL (0.0-0.7); #Lymphocytes 1.7 thou/uL (1.20-3.40); #Monocytes 0.5 thou/uL (0.11-0.59); #Neutrophils 2.4 thou/uL (1.40-6.50); %Basophils 1.7 % (0.0-1.0); %Eosinophils 4.1 % (0.0-10.0); %Lymphocytes 34.5 % (21.0-51.0); %Monocytes 9.9 % (0.0-10.0); %Neutrophils 49.8 % (42.0-75.0); Hemoglobin 15.2 g/dL (14.0-18.0); Mean Corpuscular HGB CONC 31.6 g/dL (32.0-36.0); Mean Corpuscular Hemoglobin 29.5 pg (27.0-31.0); Mean Corpuscular Volume 93.5 fL (78.0-98.0); Mean Platelet Volume 8.5 fL (7.4-10.4); Platelet Count 235 thou/uL (130-400); RBC Distribution Width 12.7 % (11.5-14.5); Red Blood Cell (RBC) Count 5.16 mill/uL (4.70-6.10); White Blood Cell (WBC) Count 4.9 thou/uL (4.8-10.8)
[2018-08-05 11:42] LABS: Anion Gap 10 mmol/L (10-20); BUN (Urea Nitrogen) 19 mg/dL (8.4-25.7); Calc. Creatinine Clearance 0 mL/min (70-130); Calcium 9.2 mg/dL (7.8-10.44); Carbon Dioxide 28 mmol/L (23-31); Chloride 103 mmol/L (98-107); Estimated GFR-MDRD 80; Glucose 87 mg/dL (80-115); Potassium 4.3 mmol/L (3.5-5.1); Sodium 137 mmol/L (136-145)
--- NOTE | 2018-08-05 15:24 | EKG ---
Test Reason : Blood Pressure : / mmHG Vent. Rate : 053 BPM Atrial Rate : 053 BPM P-R Int : 184 ms QRS Dur : 078 ms QT Int : 430 ms P-R-T Axes : 050 000 030 degrees QTc Int : 403 ms Sinus bradycardia Inferior infarct (cited on or before 19-NOV-2017) Cannot rule out Anterior infarct (cited on or before 23-MAR-2018) Abnormal ECG When compared with ECG of 23-MAR-2018 15:40, No significant change was found Confirmed by GABRIELE ISABEL, SJames ([id number]) on 08/05/2018 3:24:41 PM Referred By: ELOISA Confirmed By:DR. Brendan SUAZO MD
== END 2018-08-05 09:52 | disposition home or self-care (01) ==
LOC: LABBT 09:51
PROVIDERS: ATTEND Orthopaedic Surgery
DX: Z01.818 Encounter for other preprocedural examination (principal); M75.101 Unspecified rotator cuff tear or rupture of right shoulder, not specified as traumatic
CPT/HCPCS: 80048; 85025; 93005; 93010

== ENCOUNTER 2018-08-17 14:56 | Outpatient (CLI) | payer MEDICARE, OTHER ==
--- NOTE | 2018-08-17 18:06 | MRI ---
MRI OF LEFT ANKLE PERFORMED WITHOUT CONTRAST ENHANCEMENT: 08/17/18 HISTORY: Ankle pain in back of ankle region. The Achilles tendon is thickened mainly in its mid portion with increased signal change seen in this portion of the tendon. This is approximately 3.5 cm from the distal tendon insertion and extends over approximately a 2.4 cm segment of the tendon consistent with some tendinosis and internal mucoid deg eneration of the tendon in this region and interstitial tearing. The more distal Achilles tendon main tains a relatively normal caliber. There are edema changes in Kager's fat associated with this findin gs. The anterior extensor tendon group is normal. The peroneus longus and brevis tendons are intact. Posterior tibialis, flexor digitorum longus and fl exor hallucis longus tendons are normal in appearance. Ankle joint is unremarkable. No ligamentous findings. Sinus tarsi region is normal. Plantar fascia ap pears intact. There are some arthritic changes of the tarsal bone region. Lisfranc ligament is intact . IMPRESSION: Mild to moderate thickening and tendinopathy of the mid portion of the Achilles tendon increased sign al change within the tendon in this region is compatible with tendinotic appearance related to some i nternal mucoid degeneration and interstitial tearing. There is associated edema change in Kager's fat . POS: [facility]
== END 2018-08-17 14:57 | disposition home or self-care (01) ==
LOC: BICMRI 14:56
PROVIDERS: ATTEND Family Medicine
DX: M76.62 Achilles tendinitis, left leg (principal)

== ENCOUNTER 2018-08-20 06:35 | Day surgery (SDC) | payer MEDICARE, OTHER ==
[2018-08-05 10:13] VITALS: BMI 35.9
[2018-08-20] MEDS ORDERED: CEFAZOLIN/Water 2 GM/20 ML SYRINGE ONE (06:48)
[2018-08-20] MEDS ORDERED: Midazolam HCl 2 mg/2 ml Vial ONE ×2 (07:57→10:40)
[2018-08-20] MEDS ORDERED: Fentanyl 100 MCG/2 ML VIAL ONE ×5 (07:57→13:06)
[2018-08-20] MEDS ORDERED: Lidocaine 1% (PF) 30 ML VIAL ONE (07:57)
[2018-08-20] MEDS ORDERED: Bupivacaine/Epinephrine 0.25% 30 ML VIAL ONE (10:42)
[2018-08-20] MEDS ORDERED: Ketorolac Tromethamine 30 MG/ML VIAL ONE (12:34)
[2018-08-20] MEDS ORDERED: Zolpidem Tartrate 5 MG TAB PO PRN (12:35)
[2018-08-20] MEDS ORDERED: Fentanyl 100 MCG/2 ML VIAL IV PRN (12:35)
[2018-08-20] MEDS ORDERED: Ondansetron HCl/PF 4 MG/2 ML Vial IVP PRN (12:35)
[2018-08-20] MEDS ORDERED: Promethazine HCl 25 MG/ML VIAL IM PRN (12:35)
[2018-08-20] MEDS ORDERED: Ropivacaine 0.2% 550 ML 550 ML NERVE BLCK SCH (12:35)
[2018-08-20] MEDS ORDERED: traMADol HCl 50 MG TAB PO PRN ×2 (12:35)
[2018-08-20] MEDS ORDERED: HYDROcodone/Acetaminophen 7.5/325 mg Tablet PO PRN ×2 (12:36→12:37)
[2018-08-20] MEDS ORDERED: Ropivacaine 0.5% HCl/PF (150 MG/30 ML VIAL) ONE ×2 (12:55→12:58)
[2018-08-20] MEDS ORDERED: Ropivacaine 0.2% HCl/PF (40 MG/20 ML VIAL) ONE (12:58)
[2018-08-20] MEDS ORDERED: ePHEDrine/0.9% NaCl/PF SYRINGE 50 mg/10 ml ONE (12:58)
[2018-08-20] MEDS ORDERED: Succinylcholine Chloride 20 MG/ML 10 ml SYRINGE FS ONE (12:58)
[2018-08-20] MEDS ORDERED: Lidocaine 1% PF 5 ML VIAL ONE (12:58)
[2018-08-20] MEDS ORDERED: PHENYLEPHRINE-NS 100 MCG/ML 10 ML SYRINGE ONE (12:58)
[2018-08-20] MEDS ORDERED: PROPOFOL 200 MG/20 ML VIAL ONE (12:58)
--- NOTE | 2018-08-20 13:55 | OP ---
DATE OF PROCEDURE: 08/20/2018 PREOPERATIVE DIAGNOSIS: Massive rotator cuff tear of right shoulder. POSTOPERATIVE DIAGNOSIS: Massive rotator cuff tear of right shoulder. PROCEDURE: Open rotator cuff repair and open acromioplasty. SURGEON: Maury Green M.D. COMPUTER HARDWARE DESIGNER: None. ANESTHESIA: General. BLOOD LOSS: 100. SPECIMEN: None. DRAINS: None. COMPLICATIONS: None. DESCRIPTION OF PROCEDURE: The patient is taken to the operating room where general anesthesia was in duced. She was placed in a beach chair position. Right arm was prepped and draped in the usual ster ile fashion in a standard deltoid splitting approach. I made this quite generous exposed up to the area of the AC joint as well. I took down the anterior deltoid with a cuff of periosteum. I pe rformed anterior inferior acromioplasty palpated at the AC joint. There was really no significant in ferior spur. I do not think there is acromioclavicular arthritis with significant problem, so I left this rotator cuff tear, it was massive all the way to the glenoid. I placed tacking sutures and mob ilized the tear by breaking adhesions superiorly and inferiorly on both sides of the cuff. I was abl e to mobilize the cuff and repaired with a whipstitch using cottony Dacron suture after freshened the rotator cuff tear. I repaired all the way up to the lateral border then fixed this to bone which ku d been roughened up and to a bleeding edge and fixed it with a self-punching SwiveLock. Irrigation p erformed. Deltoid was repaired back to bone using #1 Ethibond sutures. Remainder was closed with Vi cryl, subcutaneous tissue closed with 2-0 Vicryl, the skin was closed with bonifacio. Marcaine was dewayne lied. There were no complications.
[2018-08-20] MEDS ORDERED: Ketorolac Tromethamine 30 MG/ML VIAL IVP SCH (18:00)
== END 2018-08-20 15:11 | disposition home or self-care (01) ==
LOC: SDC 06:35
PROVIDERS: ATTEND Orthopaedic Surgery
PROC: 0LQ10ZZ Repair Right Shoulder Tendon, Open Approach (ICD-10-PCS; principal; 2018-08-20)
PROC: 0RQG0ZZ Repair Right Acromioclavicular Joint, Open Approach (ICD-10-PCS; 2018-08-20)
DX: M75.101 Unspecified rotator cuff tear or rupture of right shoulder, not specified as traumatic (principal); M54.12 Radiculopathy, cervical region; G47.33 Obstructive sleep apnea (adult) (pediatric); G89.29 Other chronic pain; M54.9 Dorsalgia, unspecified; I10 Essential (primary) hypertension; E03.9 Hypothyroidism, unspecified; Z79.82 Long term (current) use of aspirin; Z79.01 Long term (current) use of anticoagulants; Z79.899 Other long term (current) drug therapy; Z88.8 Allergy status to other drugs, medicaments and biological substances; Z91.048 Other nonmedicinal substance allergy status; Z96.641 Presence of right artificial hip joint; Z98.1 Arthrodesis status
CPT/HCPCS: 23130; 23412; 96374; 97139; C1713; G8984; G8985; G8986; J1885; J2001; J2250; J2704; J2795; J3010

== ENCOUNTER 2018-11-15 12:10 | Outpatient (CLI) | payer MEDICARE, OTHER ==
[2018-11-15 16:09] LABS: #Basophils 0.1 thou/uL (0.0-0.2); #Eosinphils 0.3 thou/uL (0.0-0.7); #Lymphocytes 1.8 thou/uL (1.20-3.40); #Monocytes 0.5 thou/uL (0.11-0.59); %Eosinophils 4.9 % (0.0-10.0); %Lymphocytes 31.7 % (21.0-51.0); %Monocytes 9.5 % (0.0-10.0); %Neutrophils 52.9 % (42.0-75.0); Hemoglobin 15.5 g/dL (14.0-18.0); Mean Corpuscular HGB CONC 32.4 g/dL (32.0-36.0); Mean Corpuscular Hemoglobin 30.1 pg (27.0-31.0); Mean Corpuscular Volume 92.8 fL (78.0-98.0); Mean Platelet Volume 9.2 fL (7.4-10.4); Platelet Count 223 thou/uL (130-400); RBC Distribution Width 13.3 % (11.5-14.5); Red Blood Cell (RBC) Count 5.17 mill/uL (4.70-6.10); White Blood Cell (WBC) Count 5.7 thou/uL (4.8-10.8)
[2018-11-15 16:17] LABS: INR-International Normal Ratio 1.1; PTT 30.9 SEC (22.9-36.1); Prothrombin Time 14.5 SEC (12.0-14.7)
[2018-11-15 16:32] LABS: ALT (SGPT) 36 U/L (8-55); AST (SGOT) 29 U/L (5-34); Albumin 4.3 g/dL (3.4-4.8); Alkaline Phosphatase 53 U/L (40-150); Anion Gap 14 mmol/L (10-20); BUN (Urea Nitrogen) 21 mg/dL (8.4-25.7); Bilirubin, Total 0.5 mg/dL (0.2-1.2); Calc. Creatinine Clearance 0 mL/min (70-130); Calcium 9.1 mg/dL (7.8-10.44); Carbon Dioxide 23 mmol/L (23-31); Chloride 105 mmol/L (98-107); Estimated GFR-MDRD 72; Globulin 2.4 g/dL (2.4-3.5); Glucose 92 mg/dL (80-115); Potassium 3.9 mmol/L (3.5-5.1); Protein, Total 6.7 g/dL (5.8-8.1); Sodium 138 mmol/L (136-145)
== END 2018-11-15 12:11 | disposition home or self-care (01) ==
LOC: LABBT 12:10
PROVIDERS: ATTEND Specialist
DX: Z01.812 Encounter for preprocedural laboratory examination (principal); S21.209D Unspecified open wound of unspecified back wall of thorax without penetration into thoracic cavity, subsequent encounter; L05.91 Pilonidal cyst without abscess
CPT/HCPCS: 80053; 85025; 85610; 85730

== ENCOUNTER 2018-11-18 07:04 | Day surgery (SDC) | payer MEDICARE, OTHER ==
[2018-11-15 14:15] VITALS: BMI 30.1
[2018-11-18] MEDS ORDERED: Lidocaine 1% (PF) 30 ML VIAL ONE (08:38)
[2018-11-18] MEDS ORDERED: Verapamil 5 MG/2 ML VIAL ONE (08:51)
[2018-11-18] MEDS ORDERED: Nitroglycerin 100MG/250ML BOT 250 ML ONE (08:51)
[2018-11-18] MEDS ORDERED: Heparin 10,000 UNITS/1 ML VIAL ONE (08:51)
[2018-11-18] MEDS ORDERED: Fentanyl 100 MCG/2 ML VIAL ONE (08:53)
[2018-11-18] MEDS ORDERED: Midazolam HCl 2 mg/2 ml Vial ONE (08:53)
== END 2018-11-18 12:14 | disposition home or self-care (01) ==
LOC: CCL 07:04
PROVIDERS: ATTEND Internal Medicine Cardiovascular Disease
PROC: 4A023N7 Measurement of Cardiac Sampling and Pressure, Left Heart, Percutaneous Approach (ICD-10-PCS; principal; 2018-11-18)
PROC: B2111ZZ Fluoroscopy of Multiple Coronary Arteries using Low Osmolar Contrast (ICD-10-PCS; 2018-11-18)
DX: I25.10 Atherosclerotic heart disease of native coronary artery without angina pectoris (principal); F41.9 Anxiety disorder, unspecified; I48.0 Paroxysmal atrial fibrillation; E07.9 Disorder of thyroid, unspecified; I10 Essential (primary) hypertension; Z79.01 Long term (current) use of anticoagulants; Z79.82 Long term (current) use of aspirin; Z79.899 Other long term (current) drug therapy; Z88.8 Allergy status to other drugs, medicaments and biological substances; Z91.040 Latex allergy status; Z91.048 Other nonmedicinal substance allergy status
CPT/HCPCS: 36415; 80061; 93458; 99152; 99153; C1769; J1644; J2001; J2250; J3010

== ENCOUNTER 2018-11-22 09:12 | Day surgery (SDC) | payer MEDICARE, OTHER ==
--- NOTE | 2018-11-19 13:00 | HP ---
HISTORY OF PRESENT ILLNESS: Elder Cash is a 63-year-old male patient, who I have been following regarding a pilonidal cyst. This has been drained in the office on 09/07/2018, I have applied silver nitrate. Today, he presents, and he has an open wound about 3 cm x 1.5 cm x 1.5 cm fleshy granulation tissue. The patient is followed by Dr. Ramesh. He had a recent right shoulder rotator cuff and is followed by Dr. Green. The patient is wanting to recover from his rotator cuff, right surgery prior. Plan is for pilonidal cyst resection with Z-plasty closure. We will hold his Eliquis two days prior to operation and resume it probably two days later. MEDICATIONS: 1. Aspirin 81 mg a day. 2. Duloxetine 60 mg a day. 3. Eliquis 5 mg twice a day. 4. Gabapentin 300 mg three times a day. 5. Losartan 50 mg a day. 6. Metoprolol ER 25 mg daily. 7. Multaq 400 mg daily. 8. Testosterone daily. 9. Vitamin D3. 10. Azelastine nasal solution. 11. Flonase spray. 12. Zyrtec daily. 13. Levothyroxine 75 mcg daily. PAST MEDICAL HISTORY: Hypertension; hypothyroidism; low testosterone; sleep apnea, on BiPAP; chronic back pain with L-spine surgery; right hip osteoarthritis. Left hand surgery. Cyst removal in 1979. L4-L5 and L5-S1 disk replacement and fusion, Dr. Schafer 06/28/2013. Colonoscopy, Dr. Jara 2009. Right SI joint fusion in March 2015. Right hip replacement on 10/20/2017. Direct cardioversion, Dr. Richardson, 11/2017. Right arm I and D, that I performed on 03/24/2018. Abscess evacuation of right arm hematoma on 03/24/2018. Right shoulder rotator cuff surgery, acromioplasty, Dr. Green, 08/20/2018. Stress test and echocardiogram normal in August 2015, normal echocardiogram, normal treadmill stress test in March 2013. TOBACCO: None. ALCOHOL: None. REVIEW OF SYSTEMS: Ten points noncontributory. ALLERGIES: MIRAPEX, CAUSES WEIGHT GAIN. SIDE EFFECTS. PHYSICAL EXAMINATION: VITAL SIGNS: Weight 259 pounds, height 70 inches. Blood pressure 120/68, pulse 62, temperature 98.6 degrees. HEAD, EARS, EYES, NOSE, AND THROAT: Unremarkable. LUNGS: Clear to auscultation. CARDIAC: Regular rhythm without murmur or gallop. ABDOMEN: Soft and nontender, slightly obese. EXTREMITIES: Unremarkable. Presacral area reveals an open pilonidal cyst wound. There is fleshy granulation tissue. No infection. Dimensions as noted above. ASSESSMENT AND PLAN: 1. Pilonidal cyst. Would plan excision with Z-plasty closure under general anesthesia as an outpatient. He understands risks of infection, bleeding, reoperation, wound healing problems, recurrent wound problems, and consents. 2. On chronic anticoagulation Eliquis, hold for two days preoperatively. Resume 1 to 2 postoperatively. 3. Sleep apnea. 4. Hypothyroidism. 5. Right rotator cuff surgery recently, Dr. Green. Job ID: [id number]
[2018-11-19 14:34] VITALS: BMI 35.9
[2018-11-22] MEDS ORDERED: Midazolam HCl 2 mg/2 ml Vial ONE (09:44)
[2018-11-22] MEDS ORDERED: Fentanyl 100 MCG/2 ML VIAL ONE (09:44)
[2018-11-22] MEDS ORDERED: Lidocaine 2% Jelly 5 ML TUBE ONE (09:44)
[2018-11-22] MEDS ORDERED: Bupivacaine HCl 0.5%/Epinephrine 1:200,000/PF 30 ml Vial ONE (09:51)
[2018-11-22] MEDS ORDERED: Ketorolac Tromethamine 30 MG/ML VIAL ONE (09:53)
[2018-11-22] MEDS ORDERED: CEFAZOLIN 2 GM/50 ML BAG ONE (09:53)
[2018-11-22] MEDS ORDERED: HYDROcodone/Acetaminophen 5/325 mg Tablet ONE (15:52)
[2018-11-22] MEDS ORDERED: PHENYLEPHRINE-NS 100 MCG/ML 10 ML SYRINGE ONE (16:30)
[2018-11-22] MEDS ORDERED: Glycopyrrolate 0.2 MG/ML 5 ML SYRINGE ONE (16:30)
[2018-11-22] MEDS ORDERED: Dexamethasone 20 MG/5 ML VIAL ONE (16:30)
[2018-11-22] MEDS ORDERED: Rocuronium Bromide 10 MG/ML (10ML VIAL) ONE (16:30)
[2018-11-22] MEDS ORDERED: PROPOFOL 200 MG/20 ML VIAL ONE (16:30)
[2018-11-22] MEDS ORDERED: Ondansetron PF 4 MG/2 ML Vial ONE (16:30)
[2018-11-22] MEDS ORDERED: ePHEDrine/0.9% NaCl/PF SYRINGE 50 mg/10 ml ONE (16:30)
[2018-11-22] MEDS ORDERED: Lidocaine 1% PF 5 ML VIAL ONE (16:30)
--- NOTE | 2018-11-22 18:03 | OP ---
DATE OF PROCEDURE: 11/22/2018 PREOPERATIVE DIAGNOSIS: Pilonidal cyst disease. POSTOPERATIVE DIAGNOSIS: Pilonidal cyst disease. PROCEDURE PERFORMED: Excision of pilonidal cyst with Z-plasty closure, #10 round drain. ANESTHESIA: General, local of 0.5% Marcaine with epinephrine 30 mL. DESCRIPTION OF PROCEDURE: The patient was taken to the operating room, where in the prone position under general anesthesia, he was carefully positioned and dagoberto-sacral area and buttocks clipped of hair, prepared with ChloraPrep, and draped in routine fashion. Elliptical incision was made to excise the pilonidal cyst disease, resecting the pilonidal cyst disease of the skin, subcutaneous tissue, and markings were made for Z-plasty flaps, which were created with sharp dissection and cautery was used for hemostasis. Once the flaps were formed, the drain was placed and tailored and secured with 3-0 nylon suture. Good hemostasis was noted. Wound was irrigated. Subcutaneous tissues approximated with 2-0 Monocryl, skin with subdermal 4-0 Monocryl, and [place]-glue applied. The patient tolerated the procedure well. OpSite placed over the drain. Job ID: [id number]
--- NOTE | 2018-11-26 20:16 | EKG ---
Test Reason : PREOP Blood Pressure : / mmHG Vent. Rate : 064 BPM Atrial Rate : 064 BPM P-R Int : 172 ms QRS Dur : 074 ms QT Int : 404 ms P-R-T Axes : 028 -04 070 degrees QTc Int : 416 ms Normal sinus rhythm Nonspecific T wave abnormality Abnormal ECG When compared with ECG of 05-AUG-2018 10:34, Criteria for Inferior infarct are no longer Present Nonspecific T wave abnormality now evident in Lateral leads Confirmed by Kathryn ESPINOSA ([id number]) on 11/26/2018 8:16:19 PM Referred By: RALPH Confirmed By:Kathryn ESPINOSA
== END 2018-11-22 16:05 | disposition home or self-care (01) ==
LOC: SDC 09:12
PROVIDERS: ATTEND Specialist
PROC: 0JB90ZZ Excision of Buttock Subcutaneous Tissue and Fascia, Open Approach (ICD-10-PCS; principal; 2018-11-22)
PROC: 0HX8XZZ Transfer Buttock Skin, External Approach (ICD-10-PCS; 2018-11-22)
DX: L05.91 Pilonidal cyst without abscess (principal); I10 Essential (primary) hypertension; F41.9 Anxiety disorder, unspecified; I48.91 Unspecified atrial fibrillation; M54.9 Dorsalgia, unspecified; G89.29 Other chronic pain; M16.11 Unilateral primary osteoarthritis, right hip; E03.9 Hypothyroidism, unspecified; G47.30 Sleep apnea, unspecified; Z91.048 Other nonmedicinal substance allergy status; Z91.040 Latex allergy status; Z79.01 Long term (current) use of anticoagulants; Z79.899 Other long term (current) drug therapy; Z99.89 Dependence on other enabling machines and devices; Z88.8 Allergy status to other drugs, medicaments and biological substances
CPT/HCPCS: 88304; 93005; 93010; J0131; J0670; J1100; J1885; J2001; J2250; J2405; J2704; J3010; Q9968

== ENCOUNTER 2019-02-07 13:07 | Outpatient (CLI) | payer MEDICARE, OTHER ==
--- NOTE | 2019-02-07 13:54 | RAD ---
2 VIEW CHEST: Date: 02/07/19 HISTORY: Dyspnea. COMPARISON: 10/13/17. FINDINGS: Slightly elevated right hemidiaphragm. Lungs are clear. Heart and mediastinum unremarkable. Vasculatu re within normal range. IMPRESSION: Mildly elevated right hemidiaphragm. Otherwise no acute process. POS: [facility]
== END 2019-02-07 13:08 | disposition home or self-care (01) ==
LOC: RAD 13:07
PROVIDERS: ATTEND Internal Medicine Critical Care Medicine
DX: R06.00 Dyspnea, unspecified (principal); Q79.1 Other congenital malformations of diaphragm
CPT/HCPCS: 71046

== ENCOUNTER 2019-05-17 07:40 | Outpatient (CLI) | payer MEDICARE, OTHER ==
--- NOTE | 2019-05-17 11:37 | RAD ---
SNIFF TEST: HISTORY: Diaphragm paralysis. EXPOSURE: 0.2 minutes 59.62 mGy FINDINGS: There is decreased movement of the right hemidiaphragm. IMPRESSION: Decreased movement of the right hemidiaphragm. POS: [facility]
== END 2019-05-17 07:41 | disposition home or self-care (01) ==
LOC: RAD 07:40
PROVIDERS: ATTEND Internal Medicine Critical Care Medicine
DX: J98.6 Disorders of diaphragm (principal); R06.09 Other forms of dyspnea
CPT/HCPCS: 76000; 94060; 94727; 94729

== ENCOUNTER 2020-07-17 14:53 | Outpatient (CLI) | payer MEDICARE, OTHER ==
--- NOTE | 2020-07-17 15:17 | RAD ---
2 VIEW CHEST: Date: 07/17/2020 COMPARISON: 03/11/2019. FINDINGS: Lung sanderson appear clear. No infiltrate identified. Heart size upper normal and stable. Vascular vivi ings normal. Degenerative spine changes appear stable. IMPRESSION: No acute process identified. POS: [facility]
== END 2020-07-17 14:54 | disposition home or self-care (01) ==
LOC: BICRAD 14:53
PROVIDERS: ATTEND Internal Medicine Critical Care Medicine
DX: R06.00 Dyspnea, unspecified (principal)
CPT/HCPCS: 36415; 71046; 80053; 82306; 84270; 84403; 84439; 84443; 84481; 85025; G0103

== ENCOUNTER 2021-09-02 12:59 | Outpatient (CLI) | payer MEDICARE, OTHER | END 2021-09-02 13:00 | disposition home or self-care (01) | LOC: RAD 12:59 | PROVIDERS: ATTEND Internal Medicine Critical Care Medicine | DX: R06.00 Dyspnea, unspecified (principal) | CPT/HCPCS: 71046 ==

== ENCOUNTER 2022-01-10 10:56 | Outpatient (CLI) | payer MEDICARE | END 2022-01-10 10:57 | disposition home or self-care (01) | LOC: LABBT 10:56 | PROVIDERS: ATTEND Internal Medicine Cardiovascular Disease | DX: Z01.812 Encounter for preprocedural laboratory examination (principal); I48.0 Paroxysmal atrial fibrillation; R29.6 Repeated falls; Z20.822 Contact with and (suspected) exposure to COVID-19 | CPT/HCPCS: 80053; 85027; 85610; 86850; 86900; 86901; 86920; U0003; U0005 ==

== ENCOUNTER 2022-02-27 11:57 | Outpatient (CLI) | payer MEDICARE ==
[2022-02-27 12:57] LABS: Hemoglobin 15.3 g/dL (13.5-17.5); Mean Corpuscular HGB CONC 33.2 g/dL (32.0-36.0); Mean Corpuscular Hemoglobin 31.8 pg (27.0-33.0); Mean Corpuscular Volume 95.8 fl (81.2-95.1); Mean Platelet Volume 10.6 fl (7.4-10.4); Platelet Count 250 10x3/uL (150-450); RBC Distribution Width 12.9 % (11.5-14.5); Red Blood Cell (RBC) Count 4.81 10x6/uL (4.32-5.72); White Blood Cell (WBC) Count 5.7 10x3/uL (3.5-10.5)
[2022-02-27 13:20] LABS: Prothrombin Time 11.2 sec (9.5-12.1)
[2022-02-27 13:56] LABS: Anion Gap 17 mmol/L (10-20); BUN (Urea Nitrogen) 24 mg/dL (8.4-25.7); Calc. Creatinine Clearance 0 mL/min (70-130); Calcium 9.9 mg/dL (7.8-10.44); Carbon Dioxide 25 mmol/L (23-31); Chloride 102 mmol/L (98-107); Glucose 90 mg/dL (80-115); Potassium 4.6 mmol/L (3.5-5.1); Sodium 139 mmol/L (136-145)
[2022-02-27 20:49] LABS: SARS-CoV-2 PCR by NAA Not Detected (NotDetected)
== END 2022-02-27 11:58 | disposition home or self-care (01) ==
LOC: LABBT 11:57
PROVIDERS: ATTEND Internal Medicine Cardiovascular Disease
DX: Z01.812 Encounter for preprocedural laboratory examination (principal); I48.0 Paroxysmal atrial fibrillation; Z20.822 Contact with and (suspected) exposure to COVID-19
CPT/HCPCS: 80048; 85027; 85610; U0003; U0005

== ENCOUNTER 2022-03-04 05:58 | Day surgery (SDC) | payer MEDICARE ==
[2022-02-27 15:13] VITALS: BMI 37.3
[2022-03-04] MEDS ORDERED: Lidocaine 1% PF 5 ML VIAL ONE (07:27)
[2022-03-04] MEDS ORDERED: PROPOFOL 200 MG/20 ML VIAL ONE (07:27)
== END 2022-03-04 08:55 | disposition home or self-care (01) ==
LOC: SDC 05:58
PROVIDERS: ATTEND Internal Medicine Cardiovascular Disease
PROC: B246ZZ4 Ultrasonography of Right and Left Heart, Transesophageal (ICD-10-PCS; principal; 2022-03-04)
DX: I48.19 Other persistent atrial fibrillation (principal); I11.9 Hypertensive heart disease without heart failure; I25.10 Atherosclerotic heart disease of native coronary artery without angina pectoris; E07.9 Disorder of thyroid, unspecified; G47.30 Sleep apnea, unspecified; Z79.01 Long term (current) use of anticoagulants; Z79.82 Long term (current) use of aspirin; Z79.890 Hormone replacement therapy; Z79.899 Other long term (current) drug therapy; Z88.8 Allergy status to other drugs, medicaments and biological substances; Z91.040 Latex allergy status; Z91.048 Other nonmedicinal substance allergy status; Z95.818 Presence of other cardiac implants and grafts
CPT/HCPCS: 92960; 93312; J2704

== ENCOUNTER 2022-03-21 10:36 | Emergency (ER) | payer MEDICARE ==
[2022-03-21] MEDS ORDERED: HYDROcodone/Acetaminophen 10/325 mg Tablet ONE (12:12)
== END 2022-03-21 13:31 | disposition home or self-care (01) ==
LOC: ERS 10:36
DX: M47.897 Other spondylosis, lumbosacral region (principal); I10 Essential (primary) hypertension; E78.00 Pure hypercholesterolemia, unspecified; I48.91 Unspecified atrial fibrillation; G47.30 Sleep apnea, unspecified; Z87.442 Personal history of urinary calculi; Z79.82 Long term (current) use of aspirin; Z79.899 Other long term (current) drug therapy
CPT/HCPCS: 72100

== ENCOUNTER 2022-03-25 12:05 | Outpatient (CLI) | payer MEDICARE | END 2022-03-25 12:06 | disposition home or self-care (01) | LOC: BICRAD 12:05 | PROVIDERS: ATTEND Family Medicine | DX: M25.552 Pain in left hip (principal) ==

== ENCOUNTER 2022-04-10 11:02 | Outpatient (CLI) | payer MEDICARE ==
[2022-04-10 12:49] LABS: Hemoglobin 16.2 g/dL (13.5-17.5); Mean Corpuscular HGB CONC 33.5 g/dL (32.0-36.0); Mean Corpuscular Volume 95.5 fl (81.2-95.1); Mean Platelet Volume 11.2 fl (7.4-10.4); Platelet Count 225 10x3/uL (150-450); RBC Distribution Width 13.3 % (11.5-14.5); Red Blood Cell (RBC) Count 5.07 10x6/uL (4.32-5.72); White Blood Cell (WBC) Count 6.1 10x3/uL (3.5-10.5)
[2022-04-10 13:03] LABS: Prothrombin Time 11.3 sec (9.5-12.1)
[2022-04-10 13:06] LABS: Anion Gap 17 mmol/L (10-20); BUN (Urea Nitrogen) 25 mg/dL (8.4-25.7); Calc. Creatinine Clearance 0 mL/min (70-130); Calcium 9.4 mg/dL (7.8-10.44); Carbon Dioxide 24 mmol/L (23-31); Chloride 105 mmol/L (98-107); Glucose 78 mg/dL (80-115); Potassium 4.4 mmol/L (3.5-5.1); Sodium 142 mmol/L (136-145)
[2022-04-10 20:42] LABS: SARS-CoV-2 PCR by NAA Not Detected (NotDetected)
== END 2022-04-10 11:03 | disposition home or self-care (01) ==
LOC: LABBT 11:02
PROVIDERS: ATTEND Internal Medicine Cardiovascular Disease
DX: Z01.812 Encounter for preprocedural laboratory examination (principal); Z20.822 Contact with and (suspected) exposure to COVID-19
CPT/HCPCS: 80048; 85027; 85610; U0003; U0005

== ENCOUNTER 2022-04-15 05:51 | Day surgery (SDC) | payer MEDICARE ==
[2022-04-14 09:36] VITALS: BMI 37.3
[2022-04-15] MEDS ORDERED: Lidocaine 1% PF 5 ML VIAL ONE (06:53)
[2022-04-15] MEDS ORDERED: PROPOFOL 20 ML ONE (06:53)
== END 2022-04-15 08:48 | disposition home or self-care (01) ==
LOC: SDC 05:51
PROVIDERS: ATTEND Internal Medicine Cardiovascular Disease
DX: I48.19 Other persistent atrial fibrillation (principal); I25.10 Atherosclerotic heart disease of native coronary artery without angina pectoris; I10 Essential (primary) hypertension; G47.30 Sleep apnea, unspecified; E07.9 Disorder of thyroid, unspecified; Z79.02 Long term (current) use of antithrombotics/antiplatelets; Z79.82 Long term (current) use of aspirin; Z79.890 Hormone replacement therapy; Z79.899 Other long term (current) drug therapy; Z88.8 Allergy status to other drugs, medicaments and biological substances; Z91.040 Latex allergy status; Z91.048 Other nonmedicinal substance allergy status; Z91.81 History of falling
CPT/HCPCS: 92960; 93005; 93010; J2704

== ENCOUNTER 2023-03-16 12:03 | Outpatient (CLI) | payer MEDICARE, OTHER | END 2023-03-16 12:04 | disposition home or self-care (01) | LOC: RAD 12:03 | PROVIDERS: ATTEND Internal Medicine Critical Care Medicine | DX: R06.00 Dyspnea, unspecified (principal) | CPT/HCPCS: 71046 ==

== ENCOUNTER 2025-06-09 15:10 | Outpatient (CLI) | payer MEDICARE, OTHER | END 2025-06-09 15:11 | disposition home or self-care (01) | LOC: SCSRAD 15:10 | PROVIDERS: ATTEND Family Medicine | DX: R06.02 Shortness of breath (principal) | CPT/HCPCS: 71046 ==

== ENCOUNTER 2025-07-04 10:38 | Outpatient (CLI) | payer MEDICARE, OTHER | END 2025-07-04 10:39 | disposition home or self-care (01) | LOC: SCSRAD 10:38 | PROVIDERS: ATTEND Orthopaedic Surgery | DX: M46.1 Sacroiliitis, not elsewhere classified (principal); M43.28 Fusion of spine, sacral and sacrococcygeal region; M16.12 Unilateral primary osteoarthritis, left hip; Z96.641 Presence of right artificial hip joint | CPT/HCPCS: 72190 ==

== ENCOUNTER 2025-09-11 13:23 | Outpatient (CLI) | payer MEDICARE, OTHER | END 2025-09-11 13:24 | disposition home or self-care (01) | LOC: RAD 13:23 | PROVIDERS: ATTEND Internal Medicine Critical Care Medicine | DX: R06.00 Dyspnea, unspecified (principal) | CPT/HCPCS: 71046 ==